=== PATIENT | male | born 1930 | race Caucasian/White ===

== ENCOUNTER 2018-07-25 15:54 | Emergency (ER) | payer OTHER ==
[~2018-07-25] VITALS: Ht 182.9 cm; Wt 60.1 kg
--- NOTE | 2018-07-25 16:07 | NUR ---
CALLED [facility] AND REQUESTED DOCUMENTS TO BE FAXED OVER
--- NOTE | 2018-07-25 16:08 | NUR ---
PT BIB RA FROM HOME C/O INCREASED LETHARGY AND DIFFICULTY AROUSING THE PT TODAY WITH SECONDARY COMPLAINT OF INCREASED SOB. PT'S SON REPORTS THAT HE ALWAYS SNORES WHILE SLEEPING BUT RESPIRATIONS APPEAR AGONAL AND SHALLOW WITH SNORING RESPIRATIONS. CLOSELY MONITORING O2 SAT. O2 SAT 93% ON ROOM AIR; PLACED ON NRB MASK FOR SUPPORT. ON TELE MONITOR. VSS. NO VERBAL RESPONSE. IN ER BED.
[2018-07-25] MEDS ORDERED: IV NS 0.9% 1,000 ML BAG IV ONE ×2 (16:30)
[2018-07-25 17:08] LABS: BASOPHILS % (AUTO) 0.2 % (0.0-2.0); EOSINOPHILS % (AUTO) 0.1 % (0.0-6.0); HEMATOCRIT 41 % (39-51); HEMOGLOBIN 13.7 g/dL (13.5-17.5); LYMPHOCYTES # (AUTO) 2.2 /CMM (0.8-4.8); MEAN CORPUSCULAR HGB CONC 33 g/dl (31.0-36.0); MEAN CORPUSCULAR VOLUME 94 fL (80-96); MONOCYTES # (AUTO) 2.4 /CMM (0.1-1.30); MONOCYTES % (AUTO) 15.8 % (2.0-12.0); NEUTROPHILS # (AUTO) 10.7 /CMM (1.8-8.9); NEUTROPHILS % (AUTO) 69.9 % (43.0-81.0); PLATELET COUNT (AUTO) 260 /CMM (150-450); RED BLOOD CELL COUNT(AUTO) 4.42 MIL/uL (4.5-6.0); WHITE BLOOD COUNT (AUTO) 15.4 K/uL (4.3-11.0)
--- NOTE | 2018-07-25 17:09 | NUR ---
VERIFIED WITH PT'S SON; DNR/DNI
[2018-07-25 17:10] LABS: INR 0.99 (0.87-1.13)
[2018-07-25 17:12] LABS: APPEARANCE,URINE SL CLOUDY (CLEAR); BILIRUBIN,URINE NEGATIVE (NEGATIVE); BLOOD, URINE 3+ Ery/uL (NEGATIVE); COLOR,URINE DARK YELLO (YELLOW); KETONES,URINE 1+ (NEGATIVE); LEUKOCYTE ESTERASE ,URINE NEGATIVE (NEGATIVE); NITRITE, URINE NEGATIVE (NEGATIVE); PH,URINE 5.5 (5.0-8.0); PROTEIN,URINE NEGATIVE (NEGATIVE); UGLUCOSE NEGATIVE (NEGATIVE); UROBILINOGEN,URINE 0.2 EU/dL (0.2)
[2018-07-25 17:40] LABS: THYROID STIMULATING HORMONE 0.607 uIU/mL (0.358-3.74)
[2018-07-25 17:47] LABS: ALANINE AMINOTRANSFERASE 9 U/L (12-78); ALBUMIN 2.8 g/dL (3.4-5.0); ALKALINE PHOSPHATASE 47 U/L (46-116); ASPARTATE AMINOTRANSFERASE 13 U/L (15-37); BILIRUBIN,DIRECT 0.1 mg/dL (0.0-0.2); BILIRUBIN,TOTAL 0.5 mg/dL (0.2-1.0); CALCIUM, SERUM 8.9 mg/dL (8.5-10.1); CARBON DIOXIDE 27 mmol/L (21-32); CHLORIDE 107 mmol/L (98-107); CREATININE 1.2 mg/dL (0.6-1.3); GLUCOSE 114 mg/dL (74-106); POTASSIUM 4.2 mmol/L (3.5-5.1); SERUM AMMONIA 14 umol/L (11-32); SODIUM SERUM 141 mmol/L (136-145); TOTAL PROTEIN, SERUM 6.1 g/dL (6.4-8.2); UREA NITROGEN, BLOOD 26 mg/dL (7-18)
[2018-07-25 18:20] LABS: WBC,URINE 0-2 /HPF (0-3)
[2018-07-25 18:29] LABS: BACTERIA,URINE Few /HPF (None Seen); SQUAMOUS EPITHELIAL CELL,UR Moderate /HPF (None Seen)
[2018-07-25] MEDS ORDERED: PRAV20TA4 PO (18:37)
[2018-07-25] MEDS ORDERED: LEVO50TA8 PO (18:37)
[2018-07-25] MEDS ORDERED: ALBUTEROL FS 2.5 MG/3 ML VIAL.NEB NEB ONE (19:00)
--- NOTE | 2018-07-25 19:15 | NUR ---
REPORT GIVEN TO HARVEY RAINEY FOR [facility]. REMAINS ON NRB MASK WITH STABLE VITALS. RT AWARE OF BREATHING TX ORDER.
[2018-07-25] MEDS ORDERED: ALBUTEROL FS 2.5 MG/3 ML VIAL.NEB ONE (19:20)
--- NOTE | 2018-07-25 19:25 | NUR ---
CANCELLED TX. NO DISTRESS OR SOB NOTED. PT OR ROOM AIR. MEDICATION RETURNED BACK.
--- NOTE | 2018-07-25 19:26 | NUR ---
CALLED [facility] AND SPOKE TO INSURANCE COMMISSIONER JENS AND NOTIFIED THEM THAT THE PT WOULD NOT LIKE TO BE TRANSFERRED TO A [facility] FACILITY AND WOULD PREFER TO BE DISCHARGED AND GO HOME.
--- NOTE | 2018-07-25 19:32 | NUR ---
BROTHER ON WAY FROM [facility]. WILL WAIT FOR PT PICKUP FROM HIM
[2018-07-25 20:04] VITALS: BP 136/80
== END 2018-07-25 20:04 | disposition other institution (70) ==
LOC: ER 16:00
DX: G93.40 Encephalopathy, unspecified (principal); R41.82 Altered mental status, unspecified; E78.00 Pure hypercholesterolemia, unspecified; H40.9 Unspecified glaucoma; I10 Essential (primary) hypertension; F03.90 Unspecified dementia, unspecified severity, without behavioral disturbance, psychotic disturbance, mood disturbance, and anxiety
CPT/HCPCS: 36415; 51702; 70450; 71045; 80048; 80076; 80305; 81001; 82140; 82962; 83605; 84443; 84484; 85025; 85730; 87040 ×2; 87086; 93005; 96360; 99291; J7030 ×2; 81000-TC; A4606; Z7610